=== PATIENT | female | born 1980 | race Caucasian/White ===

== ENCOUNTER 2018-12-25 13:26 | Emergency (ER) | payer OTHER, SELFPAY ==
[2018-12-25 13:35] VITALS: BP 148/97; PULSE 99; RESP 22; TEMP 36.2; O2SAT 100
[2018-12-25 17:24] VITALS: BP 120/74; PULSE 73; RESP 18; O2SAT 99
--- NOTE | 2018-12-25 18:00 | ED_ITS ---
HPI - Headache General Chief Complaint: Headache Stated Complaint: Fainted 10 days,vomiting Time Seen by Provider: 12/25/18 18:00 Source: patient Mode of arrival: ambulatory Limitations: no limitations History of Present Illness HPI Narrative: 38-year-old female with a history of PTSD, TBI and chronic headaches. Patient is here for an MRI. Was sent by her primary provider. Patient states that 10 days ago she started having headaches. States and care to they feel like prior headaches only worse. She states that she also has tingling in her hands and her feet. She thought that her headache would get better but has not. She has been taking her medications. She called her neurologist today and then her primary doctor who told her to come to the emergency department for an MRI. Related Data Home Medications Medication Instructions Recorded Confirmed nortriptyline mg PO 12/25/18 sertraline 25 mg PO DAILY 12/25/18 12/25/18 Allergies Allergy/AdvReac Type Severity Reaction Status Date / Time No Known Allergies Allergy Uncoded 11/07/17 12:46 Review of Systems Constitutional Denies fever(s), Denies frequent falls and Reports headache(s) ENT Ears, Nose, Mouth, and Throat: Denies vertigo, Reports headache(s) and Denies disequilibrium Cardiovascular Denies chest pain and Denies dyspnea Respiratory Denies dyspnea Gastrointestinal Gastrointestinal: Denies abdominal pain, Denies nausea and Denies vomiting Musculoskeletal Denies myalgias, Denies arthralgias and Reports tingling Integumentary/Breasts Denies rash Neurologic Denies behavioral changes, Denies confusion, Denies vertigo, Denies frequent falls, Reports headache(s), Denies seizure-like activity, Reports tingling and Denies disequilibrium Psychiatric Denies behavioral changes and Denies confusion Hematologic/Lymphatic Denies easy bleeding and Denies easy bruising [facility] Medical History Migraine (Acute) PTSD (post-traumatic stress disorder) (Acute) TBI (traumatic brain injury) (Acute) Social History Smoking Status: Never smoker Social History Smoking Status: Never smoker Exam Initial Vital Signs Initial Vital Signs: Vital Signs Temperature 97.1 F L 12/25/18 13:35 Pulse Rate 99 H 12/25/18 13:35 Respiratory Rate 22 12/25/18 13:35 Blood Pressure 148/97 H 12/25/18 13:35 Pulse Oximetry 100 12/25/18 13:35 Const General: cooperative, healthy appearing, comfortable, well developed, well groomed and No acute distress Orientation: alert, awake and oriented x3 HENMT Head: normal to inspection and normocephalic Nose: external nose normal Face and sinus: normal facial exam Resp Effort & Inspection: normal respiratory effort Auscultation: clear to auscultation bilaterally Cardio Rate: regular rate Rhythm: regular rhythm Pulses: radial pulses present GI Inspection: non-distended Palpation: soft, No firm and No tender Skin Lesions: no lesions Rashes: no rashes Neuro General: alert, awake and oriented x3 Cranial Nerves: CN's II-XI intact bilaterally Cognition: normal cognition Speech: speech normal Motor: muscle tone normal throughout Sensory Exam: no sensory deficits noted Extrem General: normal to inspection and capillary refill normal Psych Appearance: grossly normal and well kempt Course Orders Ordered: Discontinued Medications Diphenhydramine HCl (Benadryl) 25 mg IV NOW ONE Stop: 12/25/18 18:45 Last Admin: 12/25/18 19:03 Dose: 25 mg Sodium Chloride (Normal Saline 0.9%) 1,000 mls @ 1,000 mls/hr IV BOLUS ONE Stop: 12/25/18 19:43 Last Infusion: 12/25/18 20:04 Dose: 0 mls/hr Admin: 12/25/18 19:02 Dose: 1,000 mls/hr Ketorolac Tromethamine (Toradol) 30 mg IV NOW ONE Stop: 12/25/18 18:45 Last Admin: 12/25/18 19:03 Dose: 30 mg Metoclopramide HCl (Reglan) 10 mg IV NOW ONE Stop: 12/25/18 18:45 Last Admin: 12/25/18 19:02 Dose: 10 mg Vital Signs - 8 hr 12/25/18 17:24 12/25/18 20:08 Pulse Rate 73 78 Respiratory Rate 18 18 Blood Pressure [Left Arm] 120/74 111/75 Pulse Oximetry 99 98 MDM - Headache MDM Narrative Medical decision making narrative: Do the time of day we are unable to obtain an MRI here in the emergency department. Patient has a normal neurologic exam. No objective findings. Patient has had symptoms for the past 10 days. Low suspicion for CVA or TIA. Low suspicion for intracranial hemorrhage given the time frame of the symptoms. She reported some improvement of the headache after medications here in the emergency department. I do not feel that the patient warrants a transfer for an emergent MRI. Informed her that she needs to talk wi th her neurologist and her primary doctor to order an MRI as an outpatient. She was given return precautions. She expressed understanding and agreement with plan. Discharge Plan Departure Patient Disposition: Home Clinical Impression: Distal paresthesia Headache Qualifiers: Headache type: unspecified Headache chronicity pattern: chronic headache Intractability: not intractable Qualified Code(s): R51 - Headache Discharge Date/Time: 12/25/18 20:13 Interventions: ED Discharge Assessment Last Done: 12/25/18 20:12 Instructions: DI for Headache Activity Restrictions/Additional Instructions: Continue all of your medications as directed. We are unable to get and MRI out of this department at the time you were in the ER. this can be ordered by e ither your neurologist or your primary care provider. Return to the ER for any new or worsening symptoms. Prescriptions: No Action nortriptyline 25 mg Capsule PO RF: 0 sertraline 25 mg Tablet 25 mg PO DAILY RF: 0 Referrals: Maame Hilton ARNP [Primary Care Provider] -
[2018-12-25] MEDS: SODIUM CHLORIDE 0.9% 1,000 ML 1000 ML IV (19:02)
[2018-12-25] MEDS: METOCLOPRAMIDE 10 MG/2 ML INJ IV (19:02)
[2018-12-25] MEDS: diphenhydrAMINE 50 MG/ML VIAL 25 MG IV (19:03)
[2018-12-25] MEDS: KETOROLAC 60 MG/2 ML VIAL 30 MG IV (19:03)
[2018-12-25 20:08] VITALS: BP 111/75; PULSE 78; RESP 18; O2SAT 98
--- NOTE | 2018-12-25 20:09 | PC.NURSE ---
Pt is moving all extremities, neuro intact. Very upset that we did not get and MRI today in ED. States that she has an out patient order for one but has not called for an appointment. Verbalized that symptoms were on going and no worse than previous but she is frustrated by wait. Has appointment w/ neurology at [facility] on January 07. Encouraged her to call for out patient MRI and to keep her appointment w/ Neurology. Ambulated out w/o difficulty.
== END 2018-12-25 20:13 | disposition home or self-care (01) ==
PROVIDERS: Emergency Provider Emergency Medicine; Family Provider Psychiatry & Neurology Neurology; PCP Nurse Practitioner Gerontology
DX: R20.2 Paresthesia of skin (principal); R51 Headache; R55 Syncope and collapse
CPT/HCPCS: 36591; 96361; 96374; 96375; 99283; 99284; J1200; J1885; J2765